=== PATIENT | female | born 1990 | race African-American/Black ===

== ENCOUNTER 2020-02-13 09:07 | Emergency (ER) | payer OTHER ==
[~2020-02-13] VITALS: Ht 152.4 cm; Wt 77.1 kg
[2020-02-13] MEDS ORDERED: MUPIROCIN1 G1 TOP (14:35)
[2020-02-13] MEDS ORDERED: SKELAXIN800 MG PO (14:35)
[2020-02-13] MEDS ORDERED: DICLOFENAC POTA50 MG PO (14:35)
== END 2020-02-13 14:23 | disposition home or self-care (01) ==
LOC: ER 09:07
DX: S40.811A Abrasion of right upper arm, initial encounter (principal); S00.83XA Contusion of other part of head, initial encounter; T74.11XA Adult physical abuse, confirmed, initial encounter; Z20.828 Contact with and (suspected) exposure to other viral communicable diseases; Y04.2XXA Assault by strike against or bumped into by another person, initial encounter; Y04.0XXA Assault by unarmed brawl or fight, initial encounter; Y93.89 Activity, other specified; Y07.03 Male partner, perpetrator of maltreatment and neglect; Y92.098 Other place in other non-institutional residence as the place of occurrence of the external cause; Y99.8 Other external cause status